=== PATIENT | male | born 1965 | race Caucasian/White ===

== ENCOUNTER 2016-10-06 15:04 | Emergency (ER) | payer MEDICARE ==
--- NOTE | ~2016-10-06 | CR63 ---
[facility]. [facility] A Service of [facility] & [facility] RADIOLOGY TEXT RESULTS PATIENT: BROCK GAMING LOCATION: SED : 63 UNIT #: [id number] AGE: [address]: DYLAN HOLT SEX: M ORDER DR: [id number] [place] [id number] E MR#: [id number] Acc #: [id number] NAME: BROCK GAMING : 1965 SEX: M STUDY DATE/TIME: 10/06/2016 15:17 UNIT: SED ROOM: STUDY DESCRIPTION: CR Chest 2 View Attending Physician: Dylan Holt Referring Physician: Dylan Holt Ordering Physician: Physician Non-Staff Primary Care Physician: No Primary Care Physician MEDICAL IMAGING REPORT This report is preliminary unless electronic signature is present. EXAM Chest x-ray, 10/06. INDICATION Cough, congestion, and shortness of air for 3 weeks. FINDINGS 2 views of the chest are compared with 11/11/2013. Cardiac and mediastinal contours are normal. Lungs are emphysematous but clear. No pneumothorax. IMPRESSION Emphysema. No active disease. Dictated by... Tonny Massey Jr., M.D. THIS IS AN ELECTRONICALLY VERIFIED REPORT Tonny Massey Jr., M.D. at 10/07/2016 8:47 PM JANA/baudilio TD: 10/06/2016 17:04 JOB #: [id number] MEDICAL IMAGING REPORT Page 1 of 1
[2016-10-06 14:51] LABS: INFLUENZA A NEG (NEG); INFLUENZA B NEG (NEG)
[~2016-10-06 15:04] MED LIST: ALBUTEROL17 GM INH; ALPRAZOLAM; AMBIEN10 MG PO; BACLOFEN20 M1 PO; CLINDAMYCIN HC300 MG PO; DESYREL100 MG DOB; DICLOFENAC; GUAIFENESIN200 M1 PO; HYDROCODON-ACE1 EAC5 PO; KEFLEX500 M2 PO; LORTAB; LORTAB 10/500 T1 TAB PO; LYRICA; LYRICA100 MG PO; LYRICA75 MG PO; MEDROL DOSEPAK4 MG PO; MS CONTIN30 M1 PO; OXYCODONE HCL20 M1 PO; PROZAC; PROZAC PO; ROBAXIN 750750 MG PO; SUDAFED30 M1 PO; TEMAZEPAM; TEMAZEPAM30 MG PO; VICODIN 5/1 TAB 5/50 PO; XANAX XR2 MG PO; XANAX2 MG PO
== END 2016-10-06 16:33 | disposition home or self-care (01) ==
LOC: SED 15:04
PROVIDERS: Emergency Medicine
DX: J06.9 Acute upper respiratory infection, unspecified (principal); F41.9 Anxiety disorder, unspecified; F31.9 Bipolar disorder, unspecified; F17.200 Nicotine dependence, unspecified, uncomplicated; Z79.899 Other long term (current) drug therapy
CPT/HCPCS: 71020; 87804; 94640; 99283